=== PATIENT | female | born 1955 | race Caucasian/White ===

== ENCOUNTER 2017-06-19 09:13 | Emergency (ER) | payer BC, MEDICAID ==
[2017-06-19 10:08] VITALS: BP 122/74
--- NOTE | 2017-06-19 11:03 | ED ---
Respiratory - HPI Summary HPI Summary: 62 yr old with sinus congestion for three months, and drainage, pressure. She has had a cough for over a month as well. Denies SOB, dizziness, lightheadedness. No fever or chills. No other complaints. - History of Current Complaint Chief Complaint: UCRespiratory Stated Complaint: COUGH X 1 MONTH Time Seen by Provider: 06/19/17 10:02 - Allergy/Home Medications Allergies/Adverse Reactions: Allergies Allergy/AdvReac Type Severity Reaction Status Date / Time No Known Allergies Allergy Verified 06/19/17 09:56 Home Medications: Home Medications Apixaban* [Eliquis*] 5 mg PO BID 06/19/17 [History Confirmed 06/19/17] Atorvastatin* [Lipitor*] 80 mg PO DAILY 06/19/17 [History Confirmed 06/19/17] Escitalopram (NF) [Lexapro 20 mg (NF)] 20 mg PO DAILY 06/19/17 [History Confirmed 06/19/17] Fluticasone NASAL SPRAY 50MCG* [Flonase NASAL SPRAY 50MCG*] 2 spray BOTH NARES DAILY 06/19/17 [History Confirmed 06/19/17] Folic Acid TAB* [Folvite TAB*] 1 mg PO DAILY 06/19/17 [History Confirmed ] Metoprolol Tartrate [Lopressor] 100 mg PO BEDTIME 06/19/17 [History Confirmed ] Metoprolol Tartrate [Lopressor] 150 mg PO DAILY 06/19/17 [History Confirmed ] PMH/Surg Hx/FS Hx/Imm Hx Endocrine/Hematology History: Denies: Hx Diabetes Cardiovascular History: Reports: Hx Hypertension Denies: Hx Pacemaker/ICD Sensory History: Denies: Hx Hearing Aid Psychiatric History: Denies: Hx Panic Disorder - Cancer History Cancer Type, 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 FX RIGHT HEEL. TONSILECTOMY. LEFT BREAST LUMPECTOMY. LASIK Infectious Disease History: Yes Infectious Disease History: Reports: Hx Shingles Denies: Traveled Outside the [place] in Last 30 Days - Family History Known Family History: Positive: None - Social History Alcohol Use: Occasionally Substance Use Type: Reports: None Smoking Status (MU): Never Smoked Tobacco Review of Systems Constitutional: Negative Positive: Nasal Discharge Positive: Cough All Other Systems Reviewed And Are Negative: Yes Physical Exam Triage Information Reviewed: Yes Vital Signs On Initial Exam: Initial Vitals Temp Pulse Resp BP Pulse Ox 98.8 F 62 20 122/74 98 06/19/17 10:00 06/19/17 10:00 06/19/17 10:00 06/19/17 10:00 06/19/17 10:00 Vital Signs Reviewed: Yes Appearance: Positive: Well-Appearing, No Pain Distress Skin: Positive: Warm Head/Face: Positive: Normal Head/Face Inspection Eyes: Positive: EOMI ENT: Positive: Pharynx normal, TMs normal, Sinus tenderness Respiratory/Lung Sounds: Positive: Clear to Auscultation, Breath Sounds Present Cardiovascular: Positive: RRR. Negative: Murmur Abdomen Description: Positive: Nontender, No Organomegaly Musculoskeletal: Positive: Strength/ROM Intact Neurological: Positive: Sensory/Motor Intact, Alert, Oriented to Person Place, Time, CN Intact II-III Psychiatric: Positive: Normal - Sabina Coma Scale Best Eye Response: 4 - Spontaneous Best Motor Response: 6 - Obeys Commands Best Verbal Response: 5 - Oriented Diagnostics - Vital Signs Vital Signs Temp Pulse Resp BP Pulse Ox 06/19/17 10:00 98.8 F 62 20 122/74 98 - Laboratory Lab Statement: Any lab studies that have been ordered have been reviewed, and results considered in the medical decision making process. - Radiology chest pa/lat Xray Interpretation: No Acute Changes Radiology Interpretation Completed By: Radiologist Disposition - Course Course Of Treatment: 62 yr old with sinus pressure, drainage, and cough. Plan DC home on Augmentin. - Diagnoses Provider Diagnoses: Sinusitis Discharge - Discharge Plan Condition: Good Disposition: HOME Prescriptions: Amoxicillin/Clavulanate TAB* [Augmentin TAB 875*] 875 mg PO BID #20 tab Patient Education Materials: Sinusitis (ED) Referrals: Librado Bowman DO [Primary Care Provider] - 2 Days
--- NOTE | 2017-06-19 11:49 | RAD ---
HISTORY: Cough COMPARISONS: None VIEWS: 4: Frontal dual-energy and lateral views of the chest. FINDINGS: CARDIOMEDIASTINAL SILHOUETTE: The cardiomediastinal silhouette is normal. DOUGLAS: The douglas are normal. PLEURA: The costophrenic angles are sharp. No pleural abnormalities are noted. LUNG PARENCHYMA: The lungs are clear. ABDOMEN: The upper abdomen is clear. There is no subphrenic gas. BONES AND SOFT TISSUES: Mild degenerative changes are noted. OTHER: None. IMPRESSION: NO ACTIVE CARDIOPULMONARY DISEASE.
== END 2017-06-19 12:17 | disposition home or self-care (01) ==
LOC: UCCORT 09:13
DX: J32.9 Chronic sinusitis, unspecified (principal); R05 Cough; I10 Essential (primary) hypertension; Z90.710 Acquired absence of both cervix and uterus; Z90.89 Acquired absence of other organs
CPT/HCPCS: 71046; 99211; G0463

== ENCOUNTER 2019-06-18 17:27 | Emergency (ER) | payer BC ==
[2019-06-18 17:57] VITALS: BP 108/76
--- NOTE | 2019-06-18 18:04 | UC ---
Lower Extremity/Ankle HPI - HPI Summary HPI Summary: 64 yo female presents with RIGHT foot injury. She tells me that on 06/13 she accidentally dropped a chair on the top of her right foot. Since that time has had continued pain to the RIGHT 1st MT - worse with weight bearing. 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 She was able to take one day off and felt much better, but symptoms returned when she went back to work. She denies numbness or tingling. Has been taking tylenol for discomfort with little relief. - History of Current Complaint Chief Complaint: UCLowerExtremity Stated Complaint: RIGHT FOOT INJURY Time Seen by Provider: 06/18/19 18:04 Hx Obtained From: Patient Onset/Duration: Sudden Onset Severity Initially: Moderate Severity Currently: Moderate Pain Intensity: 8 Pain Scale Used: 0-10 Numeric - Allergies/Home Medications Allergies/Adverse Reactions: Allergies Allergy/AdvReac Type Severity Reaction Status Date / Time No Known Allergies Allergy Verified 06/18/19 17:53 PMH/Surg Hx/FS Hx/Imm Hx Cardiovascular History: Hypertension, Atrial Fibrillation Psychological History: Anxiety, Depression - Surgical History Surgical History: Yes Surgery Procedure, Year, and Place: HYSTERECTOMY. FX RIGHT HEEL. TONSILECTOMY. LEFT BREAST LUMPECTOMY. LASIK - Family History Known Family History: Positive: None - Social History Lives: With Family Alcohol Use: Occasionally Substance Use Type: None Smoking Status (MU): Never Smoked Tobacco - Immunization History Most Recent Influenza Vaccination: mar 2017 Review of Systems All Other Systems Reviewed And Are Negative: No Constitutional: Positive: Negative Skin: Positive: Negative Respiratory: Positive: Negative Cardiovascular: Positive: Negative Neurovascular: Positive: Negative Musculoskeletal: Positive: Other: - Right foot injury Neurological: Positive: Negative Psychological: Positive: Negative Physical Exam - Summary Physical Exam Summary: GENERAL: NAD. WDWN. No pain distress. SKIN: No rashes, sores, lesions, or open wounds. CHEST: No accessory muscle use. Breathing comfortably and in no distress. CV: Pulses intact PT and DP. Cap refill <2seconds MSK: RIGHT FOOT: Moderate TTP about right 1st MTP and MT along tendon. FROM. Strength 5/5. No edema or obvious bony deformities. NEURO: Alert. Sensations intact and symmetric B/L LEs PSYCH: Age appropriate behavior. Triage Information Reviewed: Yes Vital Signs: Initial Vital Signs Temp 97.9 F 06/18/19 17:53 Pulse 115 06/18/19 17:53 Resp 18 06/18/19 17:53 BP 108/76 06/18/19 17:53 Pulse Ox 99 06/18/19 17:53 Vital Signs Reviewed: Yes Diagnostics - Radiology Foot XR Radiology Interpretation Completed By: ED Physician Summary of Radiographic Findings: No fx Lower Extremity Course/Dx - Course Course Of Treatment: XR wet read negative for acute process. Suspect contusion of foot. Advised to RICE. She was provided with a walking boot for comfort. Will write her a note off of work for 3 days to rest her foot. - Differential Dx/Diagnosis Provider Diagnosis: Foot pain Discharge ED - Sign-Out/Discharge Documenting (check all that apply): Patient Departure All imaging exams completed and their final reports reviewed: No - Discharge Plan Condition: Stable Disposition: HOME Patient Education Materials: Foot Contusion (ED) Forms: *Work Release Referrals: Marlene Andrews PA [Primary Care Provider] - Additional Instructions: If you develop a fever, shortness of breath, chest pain, new or worsening symptoms - please call your PCP or go to the ED immediately. 1) The X-ray of your foot does not appear to show a broken bone today, but the radiologist will read this in the morning and give his official report -- we will call you with any changes 2) Rest, Ice, and elevate your foot 3) Use the walking boot as needed for comfort 4) If your symptoms do not improve - please follow up with your prior Orthopedic surgeon - Billing Disposition and Condition Condition: STABLE Disposition: Home
--- NOTE | 2019-06-19 11:53 | UC ---
- Progress Note Progress Note: Patient Name: JUAN LUIS BURNS Medical Record#: [id number] Ordering Physician: Joselito DURON Acct.#: [id number] : 1955 Age: 64 Sex: F Location: [facility] Exam Date: 06/18/191728 ADM Status: [facility] ER Order Information: FOOT RIGHT 3+ VWS Accession Number: [id number] CPT: 21196 INDICATION: Right foot injury. TECHNIQUE: 3 views of the right foot were obtained. FINDINGS: The bones are osteopenic and in normal alignment. The patient appears to be status post operative reduction internal fixation. There are multiple surgical plates and screws present along the lateral aspect of the calcaneus. No fracture is seen. 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 IMPRESSION: NO EVIDENCE FOR FRACTURE, IF THE PATIENT'S SYMPTOMS PERSIST RECOMMEND FOLLOW-UP IMAGING. R0 Preliminary Imaging Read R0 <Electronically signed by Hussain Kothari MD in OV> 06/19/19704 Dictated By: Hussain Kothari MD Dictated Date/Time: 06/19/19702 Transcribed Date/Time: 06/19/19702 Copy to: CC:Marlene CLINTON; Alecia Fleming MD; Joselito DURON Imaging - [facility] Imaging [facility] [address] [place] [address] ph ([phone]) ph ([phone]) ph ([phone]) This report is only to be considered final once signed by the Provider(s) as displayed in the "<Electronically Signed by >" field (s). Absence of a signature indicates the report is in a draft status and still needs to be finalized. In the event this document was created by someone other than the signing Provider, the individual initiating the document will be listed in the "Entered by:" or "Dictated by:" antonio. 1 of 1 Course/Dx - Diagnoses Provider Diagnoses: Foot pain Discharge ED - Sign-Out/Discharge Documenting (check all that apply): Post-Discharge Follow Up All imaging exams completed and their final reports reviewed: Yes - Discharge Plan Condition: Stable Disposition: HOME Patient Education Materials: Foot Contusion (ED) Forms: *Work Release Referrals: Marlene Andrews PA [Primary Care Provider] - Additional Instructions: If you develop a fever, shortness of breath, chest pain, new or worsening symptoms - please call your PCP or go to the ED immediately. 1) The X-ray of your foot does not appear to show a broken bone today, but the radiologist will read this in the morning and give his official report -- we will call you with any changes 2) Rest, Ice, and elevate your foot 3) Use the walking boot as needed for comfort 4) If your symptoms do not improve - please follow up with your prior Orthopedic surgeon - Billing Disposition and Condition Condition: STABLE Disposition: Home
== END 2019-06-18 18:49 | disposition home or self-care (01) ==
LOC: UCCORT 17:27
DX: M79.671 Pain in right foot (principal); I10 Essential (primary) hypertension; W20.8XXA Other cause of strike by thrown, projected or falling object, initial encounter; Y92.9 Unspecified place or not applicable
CPT/HCPCS: 99212; G0463